=== PATIENT | female | born 1935 | race Caucasian/White ===

== ENCOUNTER → 2016-10-12 | Outpatient (CLI) | payer OTHER | LOC: FIMAGING 11:32 | PROVIDERS: ATTEND Internal Medicine | DX: R91.1 Solitary pulmonary nodule (principal) ==

== ENCOUNTER → 2017-11-29 | Outpatient (CLI) | payer OTHER | LOC: BHFA 10:30 | PROVIDERS: ATTEND Internal Medicine Cardiovascular Disease | DX: I48.91 Unspecified atrial fibrillation (principal) ==

== ENCOUNTER 2018-05-09 10:52 | Emergency (ER) | payer OTHER ==
--- NOTE | 2018-05-09 11:06 | EDPHY ---
H & P Stated Complaint: palpitations since ~8 am hx a fib Time Seen by Provider: 05/09/18 10:57 HPI/ROS: CHIEF COMPLAINT: Palpitations HISTORY OF PRESENT ILLNESS: The patient has a history of paroxysmal atrial fibrillation. She presents to the ED with palpitations that began earlier this morning. She denies any associated chest pain or shortness of breath. She is currently anticoagulated. The patient does take long-acting diltiazem 120 mg at night. The patient denies any fever, cough or congestion. She denies any asymmetric calf pain or swelling. She denies any complaints of acute abdominal pain. REVIEW OF SYSTEMS: A comprehensive 10 point review of systems is otherwise negative aside from elements mentioned in the history of present illness. Source: Patient - Medical/Surgical History Hx Asthma: No Hx Chronic Respiratory Disease: No Hx Diabetes: No Hx Cardiac Disease: No Hx Renal Disease: No Hx Cirrhosis: No Hx Alcoholism: No Hx HIV/AIDS: No Hx Splenectomy or Spleen Trauma: No Other PMH: a fib, htn, osteop - Social History Smoking Status: Never smoked - Physical Exam Exam: General Appearance: Alert, no distress Eyes: Pupils equal and round no pallor or injection ENT, Mouth: Mucous membranes moist Respiratory: There are no retractions, lungs are clear to auscultation Cardiovascular: Tachycardic Gastrointestinal: Abdomen is soft and nontender, no masses, bowel sounds normal Neurological: A&O, normal motor function, normal sensory exam, normal cranial nerves Skin: Warm and dry, no rashes Musculoskeletal: Neck is supple nontender Extremities: symmetrical, full range of motion Psychiatric: Patient is oriented X 3, there is no agitation Constitutional: Initial Vital Signs Temperature (C) 36.2 C 05/09/18 10:58 Heart Rate 135 H 05/09/18 10:58 Respiratory Rate 16 05/09/18 10:58 Blood Pressure 140/97 H 05/09/18 10:58 O2 Sat (%) 97 05/09/18 10:58 O2 Delivery Mode Room Air Allergies/Adverse Reactions: No Known Allergies Allergy (Unverified 05/09/18 10:57) Home Medications: Medication Instructions Recorded Diltiazem ER 05/09/18 Eliquis 05/09/18 Medical Decision Making - Diagnostics EKG Interpretation: EKG: Complete interpretation has been separately recorded in the [employer] archive. Summary impression: Atrial fibrillation/flutter, rate 138 ED Course/Re-evaluation: The patient presents to the ED with recurrent atrial fibrillation versus flutter with a rate of 138. There are no ischemic changes noted on her EKG. The patient was given 15 mg of IV diltiazem. The patient did convert into a normal sinus rhythm. Repeat EKG demonstrates a sinus rhythm with no ischemic changes. The patient was noted to have a slightly elevated troponin likely related to her tachycardia. I re-evaluated the patient at 12:30 p.m.. She is comfortable like to be discharged home. She has no chest pain or complaints of dyspnea. Differential Diagnosis: Differential diagnosis considered includes atrial fibrillation, atrial flutter, dehydration, metabolic abnormality - Data Points Laboratory Results: Laboratory Results 05/09/18 11:16 05/09/18 11:16 05/09/18 05/09/18 05/09/18 11:16 11:16 11:16 WBC 5.09 10^3/uL 10^3/uL (3.80-9.50) RBC 5.49 10^6/uL H 10^6/uL (4.18-5.33) Hgb 17.4 g/dL H g/dL (12.6-16.3) Hct 52.5 % H % (38.0-47.0) MCV 95.6 fL fL (81.5-99.8) MCH 31.7 pg pg (27.9-34.1) MCHC 33.1 g/dL g/dL (32.4-36.7) RDW 12.2 % % (11.5-15.2) Plt Count 192 10^3/uL 10^3/uL (150-400) MPV 10.3 fL fL (8.7-11.7) Neut % (Auto) 70.5 % % (39.3-74.2) Lymph % (Auto) 20.6 % % (15.0-45.0) [facility] % (Auto) 7.1 % % (4.5-13.0) Eos % (Auto) 1.0 % % (0.6-7.6) Baso % (Auto) 0.6 % % (0.3-1.7) Nucleat RBC Rel Count 0.0 % % (0.0-0.2) Absolute Neuts (auto) 3.59 10^3/uL 10^3/uL (1.70-6.50) Absolute Lymphs (auto) 1.05 10^3/uL 10^3/uL (1.00-3.00) Absolute Monos (auto) 0.36 10^3/uL 10^3/uL (0.30-0.80) Absolute Eos (auto) 0.05 10^3/uL 10^3/uL (0.03-0.40) Absolute Basos (auto) 0.03 10^3/uL 10^3/uL (0.02-0.10) Absolute Nucleated RBC 0.00 10^3/uL 10^3/uL (0-0.01) Immature Gran % 0.2 % % (0.0-1.1) Immature Gran # 0.01 10^3/uL 10^3/uL (0.00-0.10) Sodium 140 mEq/L mEq/L (135-145) Potassium 5.0 mEq/L mEq/L (3.3-5.0) Chloride 107 mEq/L mEq/L (97-110) Carbon Dioxide 20 mEq/l L mEq/l (22-31) Anion Gap 13 mEq/L mEq/L (6-14) BUN 16 mg/dL mg/dL (7-23) Creatinine 0.8 mg/dL mg/dL (0.6-1.0) Estimated GFR > 60 Glucose 111 mg/dL H mg/dL (70-100) Calcium 10.8 mg/dL H mg/dL (8.5-10.4) Phosphorus 4.1 mg/dL mg/dL (2.5-4.5) POC Troponin I 0.41 ng/mL H ng/mL (0.00-0.08) Medications Given: Discontinued Medications Diltiazem HCl (Cardizem 25 Mg/5 Ml Vial) 15 mg IVP EDNOW ONE Stop: 05/09/18 11:11 Last Admin: 05/09/18 11:20 Dose: 15 mg Sodium Chloride (Ns) 1,000 mls @ 0 mls/hr IV ONCE ONE; Wide Open PRN Reason: Protocol Stop: 05/09/18 11:11 Last Admin: 05/09/18 11:20 Dose: 1,000 mls Point of Care Test Results: Chemistry 05/09/18 11:16 POC Troponin I 0.41 ng/mL H ng/mL (0.00-0.08) Departure - Departure Disposition: Home, Routine, Self-Care Clinical Impression: Atrial fibrillation Condition: Good Instructions: A-fib (Atrial Fibrillation) (ED) Additional Instructions: 1. Please return to the ED for any chest pain or shortness of breath. 2. 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 3. Please continue your regular medications for atrial fibrillation. Referrals: Brian Bone MD [Primary Care Provider] - As per Instructions
[2018-05-09] MEDS ORDERED: DILTIAZEM 25 MG/5 ML VIAL IVP ONE (11:10)
[2018-05-09] MEDS ORDERED: NS 1,000 ML IV ONE (11:10)
--- NOTE | 2018-05-09 11:21 | CPEKG ---
Test Reason : OPEN Blood Pressure : / mmHG Vent. Rate : 138 BPM Atrial Rate : 146 BPM P-R Int : 125 ms QRS Dur : 071 ms QT Int : 355 ms P-R-T Axes : 102 000 049 degrees QTc Int : 538 ms Atrial fibrillation vs flutter with rapid V-rate Confirmed by Lei Zurita ([id number]) on 05/09/2018 11:21:25 AM Referred By: Confirmed By:Lei Zurita
[2018-05-09 11:24] LABS: PLATELET COUNT 192 10^3/uL (150-400)
[2018-05-09 12:49] VITALS: BP 118/73
== END 2018-05-09 12:52 | disposition home or self-care (01) ==
DX: I48.91 Unspecified atrial fibrillation (principal); E86.9 Volume depletion, unspecified
CPT/HCPCS: 84484-PO; 96374

== ENCOUNTER 2018-05-19 22:06 | Observation (INO) | payer OTHER ==
[2018-05-19] MEDS ORDERED: NS 500 ML IV ONE (22:33)
[2018-05-19] MEDS ORDERED: DILTIAZEM 25 MG/5 ML VIAL IVP ONE (22:33)
[2018-05-19 22:37] LABS: PLATELET COUNT 207 10^3/uL (150-400)
--- NOTE | 2018-05-19 22:37 | EDPHY ---
H & P Stated Complaint: Pt reports A fib starting at 1900, denies pain/dizzy/SOB Time Seen by Provider: 05/19/18 22:11 HPI/ROS: HPI The patient presents with episode of heart palpitations concerning for atrial fibrillation which began tonight at about 7:00 p.m. While watching television and eating her dinner. The patient has a history of paroxysmal atrial fibrillation diagnosed 2 years ago, she is followed by Dr. Martinez. She had an episode on May 09 and presented to the emergency department. Here she improved after receiving a dose of diltiazem and return to a normal sinus rhythm. She has been compliant with her long-acting diltiazem 125 mg which she takes daily and took with her dinner tonight. She is anticoagulated on Eliquis 2.5 mg. Her chads Vasc score is 4. She says with her symptoms tonight she is feeling very mild shortness of breath which comes and goes. She denies any chest pain, lower extremity edema, weakness, fever. She does say that she had a very busy day today doing housework and laundry. She did drink plenty of fluids during this time and does not feel that she is dehydrated. REVIEW OF SYSTEMS 10 systems were reviewed and negative with the exception of the elements mentioned in the history of present illness. 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 Martinez Soc Hx: Here with her family, lives independently, completes her own ADLs PHYSICAL General Appearance: Alert, no distress Eyes: Pupils equal and round no pallor or injection ENT, Mouth: Mucous membranes moist Respiratory: There are no retractions, lungs are clear to auscultation Cardiovascular: Tachycardic irregularly irregular rate Gastrointestinal: Abdomen is soft and non-tender, no masses, bowel sounds normal Neurological: A&O, moves all extremities Skin: Warm and dry, no rashes Musculoskeletal: Neck is supple non tender Extremities: symmetrical, full range of motion , no edema Psychiatric: Patient is oriented X 3, there is no agitation Source: Patient, Family, Old records Exam Limitations: No limitations - Personal History Current Tetanus/Diphtheria Vaccine: Yes Current Tetanus Diphtheria and Acellular Pertussis (TDAP): Yes - Medical/Surgical History Hx Asthma: No Hx Chronic Respiratory Disease: No Hx Diabetes: No Hx Cardiac Disease: No Hx Renal Disease: No Hx Cirrhosis: No Hx Alcoholism: No Hx HIV/AIDS: No Hx Splenectomy or Spleen Trauma: No Other PMH: a fib, htn, osteop - Social History Smoking Status: Never smoked Constitutional: Initial Vital Signs Temperature (C) 36.6 C 05/19/18 22:08 Heart Rate 138 H 05/19/18 22:08 Respiratory Rate 16 05/19/18 22:08 Blood Pressure 153/101 H 05/19/18 22:08 O2 Sat (%) 97 05/19/18 22:08 O2 Delivery Mode Room Air Allergies/Adverse Reactions: No Known Allergies Allergy (Unverified 05/09/18 10:57) Home Medications: Medication Instructions Recorded Diltiazem ER 05/09/18 Eliquis 05/09/18 Glucosamine 05/19/18 Multivitamin (*) 05/19/18 Medical Decision Making - Diagnostics EKG Interpretation: EKG: Complete interpretation has been separately recorded in the [employer] archive. Summary impression: Atrial fibrillation with rate ranging from 60-140 Imaging Results: Imaging Impressions Chest X-Ray 05/19/18 22:32 Impression: Clear lungs. No acute process. Imaging: I viewed and interpreted images myself Differential Diagnosis: 83-year-old female with history of paroxysmal atrial fibrillation, hypertension , increased frequency of episodes with 2 in the last 9 days now. Symptoms started while at rest at 7:00 p.m. Tonight, clear time of onset. Minimal symptoms except for palpitations and mild shortness of breath. Compliant with her medication. Differential diagnosis includes paroxysmal atrial fibrillation, ACS, new onset CHF, less likely pulmonary embolism given no chest pain or shortness of breath. Plan for IV fluids, dose of diltiazem, basic labs, chest x-ray. After fluids and diltiazem patient's heart rate improved to about 80s though she remained in atrial fibrillation. She felt well. Basic testing was unremarkable. I consulted with Dr. Robledo the on-call lockstitch topstitcher for Dr. Martinez. He recommends initiation of low-dose metoprolol twice daily and follow up with Dr. Martinez office in the next few days. However, patient returned to a faster rate with ongoing AFib. Because of this I gave her metoprolol total of 15 mg without any change in her rate. I started her on a diltiazem drip. I feel she would benefit for admission to the hospital for further care. If metoprolol is not working here IV then I have concerns that it will not benefit her as an outpatient and she did have hypotension with increased dose of diltiazem. I consulted with Dr. Zendejas from the hospitalist service who will admit her overnight. - Data Points Laboratory Results: Laboratory Results 05/19/18 22:20 05/19/18 22:20 05/19/18 05/19/18 05/19/18 22:36 22:20 22:20 WBC 5.55 10^3/uL 10^3/uL (3.80-9.50) RBC 5.03 10^6/uL 10^6/uL (4.18-5.33) Hgb 16.0 g/dL g/dL (12.6-16.3) Hct 47.7 % H % (38.0-47.0) MCV 94.8 fL fL (81.5-99.8) MCH 31.8 pg pg (27.9-34.1) MCHC 33.5 g/dL g/dL (32.4-36.7) RDW 12.3 % % (11.5-15.2) Plt Count 207 10^3/uL 10^3/uL (150-400) MPV 10.5 fL fL (8.7-11.7) Neut % (Auto) 62.4 % % (39.3-74.2) Lymph % (Auto) 24.0 % % (15.0-45.0) [place] % (Auto) 10.3 % % (4.5-13.0) Eos % (Auto) 2.2 % % (0.6-7.6) Baso % (Auto) 0.7 % % (0.3-1.7) Nucleat RBC Rel Count 0.0 % % (0.0-0.2) Absolute Neuts (auto) 3.47 10^3/uL 10^3/uL (1.70-6.50) Absolute Lymphs (auto) 1.33 10^3/uL 10^3/uL (1.00-3.00) Absolute Monos (auto) 0.57 10^3/uL 10^3/uL (0.30-0.80) Absolute Eos (auto) 0.12 10^3/uL 10^3/uL (0.03-0.40) Absolute Basos (auto) 0.04 10^3/uL 10^3/uL (0.02-0.10) Absolute Nucleated RBC 0.00 10^3/uL 10^3/uL (0-0.01) Immature Gran % 0.4 % % (0.0-1.1) Immature Gran # 0.02 10^3/uL 10^3/uL (0.00-0.10) Sodium 139 mEq/L mEq/L (135-145) Potassium 4.2 mEq/L mEq/L (3.3-5.0) Chloride 99 mEq/L mEq/L (97-110) Carbon Dioxide 31 mEq/l mEq/l (22-31) Anion Gap 9 mEq/L mEq/L (6-14) BUN 23 mg/dL mg/dL (7-23) Creatinine 1.0 mg/dL mg/dL (0.6-1.0) Estimated GFR 53 Glucose 100 mg/dL mg/dL (70-100) Calcium 10.6 mg/dL H mg/dL (8.5-10.4) Magnesium 2.3 mg/dL mg/dL (1.6-2.3) POC Troponin I 0.00 ng/mL ng/mL (0.00-0.08) Medications Given: Discontinued Medications Diltiazem HCl (Cardizem 25 Mg/5 Ml Vial) 15 mg IVP EDNOW ONE Stop: 05/19/18 22:34 Last Admin: 05/19/18 22:41 Dose: 15 mg Sodium Chloride (Ns) 500 mls @ 1,000 mls/hr IV EDNOW ONE PRN Reason: Protocol Stop: 05/19/18 23:02 Last Admin: 05/19/18 22:41 Dose: 500 mls Magnesium Sulfate/Dextrose (Magnesium Sulf 1 Gm (Premix)) 100 mls @ 100 mls/hr IV EDNOW ONE Stop: 05/20/18 00:55 Last Admin: 05/20/18 00:04 Dose: 100 mls Diltiazem/Dextrose (Diltiazem 125mg/125ml (Premix)) 125 mls @ 0 mls/hr IV EDNOW ONE; As Directed PRN Reason: Protocol Stop: 05/20/18 00:31 Last Admin: 05/20/18 00:24 Dose: 125 mls Metoprolol Tartrate (Lopressor Injection) 5 mg IVP Q5M FAHAD Stop: 05/19/18 23:41 Last Admin: 05/19/18 23:46 Dose: 5 mg Point of Care Test Results: Chemistry 05/19/18 22:36 POC Troponin I 0.00 ng/mL ng/mL (0.00-0.08) Departure - Departure Disposition: [facility] Inpatient Acute Clinical Impression: Atrial fibrillation with RVR Atrial fibrillation Qualifiers: Atrial fibrillation type: paroxysmal Qualified Code(s): I48.0 - Paroxysmal atrial fibrillation Condition: Fair
[2018-05-19] MEDS: METOPROLOL TARTRATE 5 MG/5 ML INJ IVP SCH ×3 (23:29→23:46)
[2018-05-19] MEDS ORDERED: DILTIAZEM 125 MG in D5W 125 ML IV ONE (23:56)
[2018-05-19] MEDS ORDERED: MAGNESIUM SULF 1 GM/DEXTROSE 100 ML IV ONE (23:56)
[2018-05-20] MEDS ORDERED: ACETAMINOPHEN 325 MG TAB PO PRN (00:12)
[2018-05-20] MEDS ORDERED: ONDANSETRON 4 MG/2 ML VIAL IVP PRN (00:12)
[2018-05-20] MEDS ORDERED: ONDANSETRON DISINTEGRATING 4 MG TAB PO PRN (00:12)
[2018-05-20] MEDS ORDERED: DILTIAZEM HCL/D5W 125 ML IV SCH (00:15)
--- NOTE | 2018-05-20 00:28 | PDGENHP ---
History and Physical - Chief Complaint Palpitations - History of Present Illness 83 yo F w/ hx of AF presents with rapid heart rate. She was in her usual state of good health until 7 PM when she noticed her heart racing. She had a similar episode on 05/09 that improved with additional dose of diltiazem. She denies chest pain, SOB, or symptoms or recent illness. She is compliant with Diltiazem XR 120 mg qD and Eliquis for anticoagulation. In the ED her ECG confirmed AF w / RVR. A single dose of diltiazem and then metoprolol were not successful in improving her rate. As a result, she has been placed on a diltiazem IV drip and will be admitted for further management. Case discussed with ED physician Dr. Michel; records reviewed and summarized above. History Information - Allergies/Home Medication List Allergies/Adverse Reactions: No Known Allergies Allergy (Unverified 05/09/18 10:57) Home Medications: Diltiazem ER 05/09/18 [Last Taken Unknown] Eliquis 05/09/18 [Last Taken Unknown] Glucosamine 05/19/18 [Last Taken Unknown] Multivitamin (*) 05/19/18 [Last Taken Unknown] I have personally reviewed and updated: family history, medical history - Past Medical History atrial fibrillation - Surgical History Reports: appendectomy, hysterectomy - Family History Additional family history: Father had atrial fibrillation and pulmonary embolism - Social History Smoking Status: Never smoked Review of Systems Review of Systems: ROS: 10pt was reviewed & negative except for what was stated in HPI & below Physical Exam Physical Exam: Temp Pulse Resp BP Pulse Ox 36.6 C 110 H 16 113/78 93 05/19/18 22:08 05/19/18 23:57 05/19/18 23:57 05/19/18 23:57 05/19/18 23:57 Constitutional: no apparent distress, not in pain Eyes: PERRL, EOMI Ears, Nose, Mouth, Throat: moist mucous membranes, no oral mucosal ulcers Cardiovascular: no murmur, rub, or gallop, irregularly irregular Respiratory: no respiratory distress, clear to auscultation Gastrointestinal: normoactive bowel sounds, soft, non-tender abdomen Skin: warm, normal color Musculoskeletal: full muscle strength, no muscle tenderness Neurologic: AAOx3, CN II-XII Intact Psychiatric: interacting appropriately, not anxious Lab Data & Imaging Review 05/19/18 22:20 05/19/18 22:20 WBC 5.55 10^3/uL (3.80-9.50) 05/19/18 22:20 RBC 5.03 10^6/uL (4.18-5.33) 05/19/18 22:20 Hgb 16.0 g/dL (12.6-16.3) 05/19/18 22:20 Hct 47.7 % (38.0-47.0) H 05/19/18 22:20 MCV 94.8 fL (81.5-99.8) 05/19/18 22:20 MCH 31.8 pg (27.9-34.1) 05/19/18 22:20 MCHC 33.5 g/dL (32.4-36.7) 05/19/18 22:20 RDW 12.3 % (11.5-15.2) 05/19/18 22:20 Plt Count 207 10^3/uL (150-400) 05/19/18 22:20 MPV 10.5 fL (8.7-11.7) 05/19/18 22:20 Neut % (Auto) 62.4 % (39.3-74.2) 05/19/18 22:20 Lymph % (Auto) 24.0 % (15.0-45.0) 05/19/18 22:20 [place] % (Auto) 10.3 % (4.5-13.0) 05/19/18 22:20 Eos % (Auto) 2.2 % (0.6-7.6) 05/19/18 22:20 Baso % (Auto) 0.7 % (0.3-1.7) 05/19/18 22:20 Nucleat RBC Rel Count 0.0 % (0.0-0.2) 05/19/18 22:20 Absolute Neuts (auto) 3.47 10^3/uL (1.70-6.50) 05/19/18 22:20 Absolute Lymphs (auto) 1.33 10^3/uL (1.00-3.00) 05/19/18 22:20 Absolute Monos (auto) 0.57 10^3/uL (0.30-0.80) 05/19/18 22:20 Absolute Eos (auto) 0.12 10^3/uL (0.03-0.40) 05/19/18 22:20 Absolute Basos (auto) 0.04 10^3/uL (0.02-0.10) 05/19/18 22:20 Absolute Nucleated RBC 0.00 10^3/uL (0-0.01) 05/19/18 22:20 Immature Gran % 0.4 % (0.0-1.1) 05/19/18 22:20 Immature Gran # 0.02 10^3/uL (0.00-0.10) 05/19/18 22:20 Sodium 139 mEq/L (135-145) 05/19/18 22:20 Potassium 4.2 mEq/L (3.3-5.0) 05/19/18 22:20 Chloride 99 mEq/L (97-110) 05/19/18 22:20 Carbon Dioxide 31 mEq/l (22-31) 05/19/18 22:20 Anion Gap 9 mEq/L (6-14) 05/19/18 22:20 BUN 23 mg/dL (7-23) 05/19/18 22:20 Creatinine 1.0 mg/dL (0.6-1.0) 05/19/18 22:20 Estimated GFR 53 05/19/18 22:20 Glucose 100 mg/dL (70-100) 05/19/18 22:20 Calcium 10.6 mg/dL (8.5-10.4) H 05/19/18 22:20 Magnesium 2.3 mg/dL (1.6-2.3) 05/19/18 22:20 POC Troponin I 0.00 ng/mL (0.00-0.08) 05/19/18 22:36 Imaging Review: Imaging Impressions Chest X-Ray 05/19/18 22:32 Impression: Clear lungs. No acute process. Visualized and Interpreted Chest x-ray results: Yes Chest X-Ray results: no infiltrate Visualized and Interpreted EKG results: Yes EKG Interpretation: Positive for: other (Atrial fibbrilation) Assessment & Plan Assessment: 83 yo F w/ AF presents with RVR. Plan: 1. AF w/ RVR - No clear trigger for tachycardia; patient denies chest pain, SOB , and symptoms of recent illness. Her CXR (personally reviewed/interpreted) reveals no acute cardiopulmonary process and her laboratory work-up is unremarkable. She is compliant with daily diltiazem and Eliquis as outpatient. - Admit to PCU for observation - Diltiazem gtt initiated - Monitor on telemetry - Check TSH - Cardiology consult in the morning for further management - Continue Eliquis pending reconciliation Diet - Regular Code - Full Ppx - Eliquis Dispo - Admit under observation status
[2018-05-20] MEDS ORDERED: DILTIAZEM HCL/D5W 125 ML IV ONE (00:30)
[2018-05-20 05:02] LABS: PLATELET COUNT 192 10^3/uL (150-400)
--- NOTE | 2018-05-20 06:54 | CPEKG ---
Test Reason : OPEN Blood Pressure : / mmHG Vent. Rate : 133 BPM Atrial Rate : 134 BPM P-R Int : 144 ms QRS Dur : 070 ms QT Int : 317 ms P-R-T Axes : 000 010 002 degrees QTc Int : 472 ms Atrial fibrillation Low voltage, precordial leads Abnormal R-wave progression, early transition Confirmed by Shavonne Michel ([id number]) on 05/20/2018 6:54:13 AM Referred By: Confirmed By:Shavonne Michel
[2018-05-20] MEDS ORDERED: APIXABAN 2.5 MG TAB PO SCH ×3 (09:15→21:00)
[2018-05-20 11:55] VITALS: BP 116/51
[2018-05-20] MEDS ORDERED: DILTIAZEM 30 MG TAB PO PRN (12:22)
--- NOTE | 2018-05-20 12:30 | PDCARPN ---
Cardiology Progress Note Chief Complaint: Atrial fibrillation Assessment/Plan: Assessment: The patient is a 83 y/o F with a history of HTN and PAF who has been seen in the ER twice in the past 2 weeks with atrial fibrillation with RVR. She is minimally symptomatic when in a.fib complaining only of a racing heart. She does become anxious. On 05/09 she was seen in the ER and converted to NSR after Diltiazem 15mg IV x1. She presented again last night with a heart rate of 135BPM and did not converted with a bolus but did convert at 1AM after being placed on a Cardizem drip. Plan: PAF with RVR- She is minimally symptomatic when in a.fib but does become anxious. She will continue Cardizem 120mg daily and I will add Cardizem 30mg PRN to take when in a.fib. She did not tolerate higher doses of Cardizem in the past secondary to hypotension. She will continue Eliquis for CVA prophylaxis. Follow up with Dr. Martinez in 2 weeks. 05/20/18 12:33 Subjective: She denies any further palpitations, CP, SOB, or dizziness. Reviewed/Discussed With: hospitalist Objective: Vital Signs (8 Hrs) Temp Pulse Resp BP Pulse Ox 05/20/18 11:54 36.9 C 60 16 116/51 L 92 05/20/18 08:23 36.8 C 60 16 127/56 H 96 Intake/Output (24 Hrs) 05/19/18 05/20/18 05/21/18 05:59 05:59 05:59 Intake Total 600 Output Total 350 400 Balance 250 -400 Intake: Oral (ml) 100 IV Infused (ml) 500 Output: Urine (ml) 350 400 Toilet 350 400 Other: Weight 58.06 kg Number of Voids 1 Toilet 1 Result Diagrams: 05/20/18 03:15 05/20/18 03:15 Telemetry: A.fib converted to NSR at 1AM - Physical Exam Constitutional: WDWN, healthy appearing Cardiovascular: regular rate and rhythm, no murmurs, no rubs, no gallops Peripheral Pulses: 2+: dorsalis-pedis (R), dorsalis-pedis (L) Respiratory: clear to auscultate bilat, no crackles, no wheezes Skin: no edema Neurologic: AAOx3 ICD10 Worksheet Patient Problems: Problems Problem Status Onset Atrial fibrillation Acute Atrial fibrillation with RVR Acute
--- NOTE | 2018-05-20 12:53 | ASDISCHSUM ---
Discharge Information Plan Status:Home with No Needs Medically Cleared to Leave: Discharge Date: CM D/C Disposition:Home, Routine, Self-Care ADT D/C Disposition:Home, Routine, Self-Care Projected Discharge Date: Transportation at D/C:Family Discharge Delay Reason: Follow-Up Date: Discharge Slot: Final Diagnosis: Placement Information Patient Contact Information Contact Name:LORAINEHEATH Relationship:Daughter Address:[address] City:[place] Alternate Phone: [facility]/Zip Code:[place] [address] Email: Financial Information Financial Class:Medicare Primary Plan Desc:MEDICARE OUTPATIENT Primary Plan Number:[id number] Secondary Plan Desc:TED PPO Secondary Plan Number:[id number] Assessment Information [facility] CM Progress Note CM Note CM Note Notes: Chart reviewed by CM. Pt lives alone in [place] with dtr Loraine in [place]. Pt admitted for Afib with RVR. No therapies ordered. Pt will likely discharge independent. CM to follow. D/C Plan: Independent Date Signed: 05/20/2018 12:51 PM Electronically Signed By:Meryl Ashford Intervention Information Intervention Type:*ONIEL-Signed Date of Service:05/20/2018 09:56 AM Patient Type:Observation Staff Member:Hafsa Singh Hours: Discipline: Severity: Comment:
--- NOTE | 2018-05-20 13:02 | GDS ---
DIAGNOSES: 1. Atrial fibrillation with rapid ventricular response, paroxysmal. 2. Arthritis. CONSULTATIONS: Cardiology. PROCEDURE DONE: Telemetry monitoring. HOSPITAL COURSE: The patient is an 83-year-old with a history of paroxysmal atrial fibrillation. Nicanor sherman is on anticoagulation and rate control with diltiazem. She was in her usual state of health and de veloped atrial fibrillation. She does become anxious from this, but otherwise is asymptomatic. She came to the hospital, placed on a diltiazem drip, and overnight, she converted back to sinus rhythm. She sees Dr. Nimesh Martinez from [facility], so [facility] was consulted and they recommend that s he continue her usual dose of diltiazem and to take a p.r.n. dose of 30 mg short-acting on an as-need ed basis should she go into paroxysmal atrial fibrillation. She will need close followup with her [facility] care provider Dr. Nimesh Martinez as an outpatient. CONDITION ON DISCHARGE: Good. DISCHARGE MEDICATIONS: Please see discharge medication form. FOLLOWUP: Will be with [facility] as scheduled. /[id number]/MODL
--- NOTE | 2018-05-20 13:26 | CPEKG ---
Test Reason : OPEN Blood Pressure : / mmHG Vent. Rate : 061 BPM Atrial Rate : 061 BPM P-R Int : 149 ms QRS Dur : 075 ms QT Int : 422 ms P-R-T Axes : 069 018 035 degrees QTc Int : 425 ms Sinus rhythm Left atrial enlargement Low voltage, extremity and precordial leads Abnormal R-wave progression, early transition Confirmed by Adan Carmichael ([id number]) on 05/20/2018 1:25:25 PM Referred By: Confirmed By:Adan Carmichael
[2018-05-20] MEDS ORDERED: DILTIAZEM CD 120 MG CAP PO SCH (21:00)
[2018-05-21] MEDS ORDERED: OMEGA-3 FATTY ACIDS 1,000 MG CAP PO SCH (09:00)
[2018-05-21] MEDS ORDERED: GLUCOSAMINE SULF 500 MG CAP PO SCH (09:00)
[2018-05-21] MEDS ORDERED: MULTIVITAMINS 1 EACH TAB PO SCH (09:00)
== END 2018-05-20 14:02 | disposition home or self-care (01) ==
LOC: F2W 05-20 00:49
PROVIDERS: ADMIT Student in an Organized Health Care Education/Training Program; ATTEND Internal Medicine
PROC: 5A2204Z Restoration of Cardiac Rhythm, Single (ICD-10-PCS; principal; 2018-05-19)
DX: I48.0 Paroxysmal atrial fibrillation (principal); Z79.01 Long term (current) use of anticoagulants
CPT/HCPCS: 71045; 93005; 96361; 96365; 96368; 96375; 99285; J3475; 84484-PO; G0378